=== PATIENT | male | born 1990 | race Caucasian/White ===

== ENCOUNTER 2017-07-29 20:16 | Emergency (ER) | payer OTHER ==
[~2017-07-29] VITALS: Ht 180.3 cm; Wt 79.1 kg
[2017-07-29 20:24] VITALS: BP 142/81; PULSE 91; RESP 18; TEMP 98.3; O2SAT 100
[2017-07-29] MEDS ORDERED: SULF500T3 PO (20:32)
[2017-07-29] MEDS ORDERED: FOLI800T PO (20:32)
[2017-07-29] MEDS ORDERED: TYLE325T PO (20:32)
[2017-07-29] MEDS ORDERED: ACETAMINOPHEN 325 MG TAB PO ONE (20:45)
[2017-07-29] MEDS ORDERED: SODIUM CHLORID 0.9% 500 ML INJ 500 ML IV ONE (20:45)
[2017-07-29] MEDS ORDERED: SODIUM CHLORIDE 0.9% FLUSH 10 ML FLUSH IV FLUSH PRN (20:45)
[2017-07-29] MEDS ORDERED: METOCLOPRAMIDE HCL 10 MG/2 ML VIAL IV PUSH ONE (20:45)
--- NOTE | 2017-07-29 20:45 | PD ---
HPI Chief Complaint: Headache Time Seen by Provider: 20:35 Travel History International Travel<30 days: No Contact w/Intl Traveler<30days: No Traveled to known affect area: No History of Present Illness HPI 26-year-old male here for evaluation of head pain and neck pain. 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 Patient also reports that he was having sinus pressure at that time which has since resolved , now he has pain in his posterior head. He rates the pain is 4 out of 10, pressure, constant, worse in the mornings and at night, nonradiating, improved with holding pressure against his posterior scalp. He saw a chiropractor who performed x-rays of his neck and referred him to a neurologist, however economically component with a neurologist until August 15. He has not had any fevers. No paresthesias or motor deficits. No visual changes. He has not taken anything for the pain up until today when he took Tylenol this morning with some relief of symptoms. [facility] Past Medical History Diminished Hearing: No Gastrointestinal Disorders: Yes (ULCERATIVE COLITIS) Headaches: Yes (X 3 WEEKS THIS VISIT.) Immunizations Current: Yes Tetanus Vaccination: > 5 Years Influenza Vaccination: No Past Surgical History Surgical History: No Previous Surgery Social History Alcohol Use: Yes (GLASS OF WINE DAILY) Tobacco Use: No Substance Use: No Allergies-Medications (Allergen,Severity, Reaction): Coded Allergies: cefaclor (Verified Allergy, Severe, Rash, 07/29/17) Reported Meds & Prescriptions Reported Meds & Active Scripts Active Reported Tylenol (Acetaminophen) 325 Mg Tab 650 Mg PO ONCE Folic Acid 0.8 Mg Tab 800 Mcg PO DAILY Sulfasalazine 500 Mg Tab 1,000 Mg PO Q8H Review of Systems Except as stated in HPI: all other systems reviewed are Neg Physical Exam Narrative GENERAL: Well-developed, well-nourished, comfortable, no apparent distress. SKIN: Focused skin assessment warm/dry. HEAD: Atraumatic. Normocephalic. Mild posterior scalp tenderness without masses , without skin color changes. EYES: Pupils equal, round, 3 mm, reactive to light. EOMI. No scleral icterus. No injection or drainage. ENT: No nasal bleeding or discharge. Mucous membranes pink and moist. NECK: Trachea midline. No JVD. No midline vertebral step-off or tenderness. No nuchal rigidity. CARDIOVASCULAR: Regular rate and rhythm. RESPIRATORY: No accessory muscle use. MUSCULOSKELETAL: No obvious deformities. No clubbing. No cyanosis. No edema. NEUROLOGICAL: Awake and alert. No obvious cranial nerve deficits. Motor grossly within normal limits. Normal speech. No focal deficits. PSYCHIATRIC: Appropriate mood and affect; insight and judgment normal. Data Data Last Documented VS Vital Signs Date Time Temp Pulse Resp B/P (MAP) Pulse Ox O2 Delivery O2 Flow Rate FiO2 07/29/17 20:55 90 18 137/68 (91) 99 Room Air 07/29/17 20:24 98.3 Orders Orders Basic Metabolic Panel (Bmp) (07/29/17 20:41) Complete Blood Count With Diff (07/29/17 20:41) Prothrombin Time / Inr (Pt) (07/29/17 20:41) Act Partial Throm Time (Ptt) (07/29/17 20:41) Iv Access Insert/Monitor (07/29/17 20:41) Ecg Monitoring (07/29/17 20:41) Oximetry (07/29/17 20:41) Sodium Chloride 0.9% Flush (Ns Flush) (07/29/17 20:45) Ct Brain W/O Iv Contrast(Rout) (07/29/17 ) Ct Cerv Spine W/O Contrast (07/29/17 ) Metoclopramide Inj (Reglan Inj) (07/29/17 20:45) Acetaminophen (Tylenol) (07/29/17 20:45) Sodium Chlorid 0.9% 500 Ml Inj (Ns 500 M (07/29/17 20:45) Labs Laboratory Tests Test 07/29/17 20:50 White Blood Count 7.5 TH/MM3 Red Blood Count 5.00 MIL/MM3 Hemoglobin 15.4 GM/DL Hematocrit 46.6 % Mean Corpuscular Volume 93.3 FL Mean Corpuscular Hemoglobin 30.8 PG Mean Corpuscular Hemoglobin Concent 33.0 % Red Cell Distribution Width 11.2 % Platelet Count 228 TH/MM3 Mean Platelet Volume 8.3 FL Neutrophils (%) (Auto) 57.0 % Lymphocytes (%) (Auto) 32.6 % Monocytes (%) (Auto) 8.1 % Eosinophils (%) (Auto) 1.8 % Basophils (%) (Auto) 0.5 % Neutrophils # (Auto) 4.4 TH/MM3 Lymphocytes # (Auto) 2.4 TH/MM3 Monocytes # (Auto) 0.6 TH/MM3 Eosinophils # (Auto) 0.1 TH/MM3 Basophils # (Auto) 0.0 TH/MM3 CBC Comment DIFF FINAL Differential Comment Prothrombin Time 10.9 SEC Prothromb Time International Ratio 1.1 RATIO Activated Partial Thromboplast Time 28.3 SEC Blood Urea Nitrogen 15 MG/DL Creatinine 1.10 MG/DL Random Glucose 137 MG/DL Calcium Level 8.8 MG/DL Sodium Level 138 MEQ/L Potassium Level 3.4 MEQ/L Chloride Level 101 MEQ/L Carbon Dioxide Level 31.7 MEQ/L Anion Gap 5 MEQ/L Estimat Glomerular Filtration Rate 82 ML/MIN [facility] Medical Decision Making Medical Screen Exam Complete: Yes Emergency Medical Condition: Yes Differential Diagnosis Musculoskeletal pain, musculoskeletal strain, tension headache, cluster headache , migraine headache, SAH/meningitis/encephalitis unlikely Narrative Course Vital signs are within normal limits. CBC and BMP are essentially unremarkable. CT head shows no acute intracranial abnormality. CT cervical spine shows no acute abnormality, negative trauma CT. The patient was given a half a liter of normal saline IV, IV Reglan, and oral Tylenol, and on reassessment he states his headache has resolved. He was made aware of all findings and provided a copy of his CT head and neck reports. At this point he stable for discharge home with further workup as an outpatient with a primary care physician this week. He was advised on when to return to the emergency department. He verbalizes understanding and agreement with plan. Diagnosis Primary Impression: Cephalgia Qualified Codes: R51 - Headache Referrals: Primary Care Physician 3 days Additional Instructions: Follow-up with a primary care physician or neurologist this week. Take Tylenol/ibuprofen for pain. Return to the emergency department for worsening symptoms or any other concerns. Disposition: 01 DISCHARGE HOME Condition: Stable Andrei Johnson MD Jul 29, 2017 20:45
[2017-07-29 20:55] VITALS: BP 137/68; PULSE 90; RESP 18; O2SAT 99
[2017-07-29 21:12] LABS: AUTOMATED NEUTROPHIL # 4.4 TH/MM3 (1.8-7.7); BASOPHIL % 0.5 % (0.0-2.0); EOSINOPHIL # 0.1 TH/MM3 (0-0.4); EOSINOPHIL % 1.8 % (0.0-4.0); HEMATOCRIT 46.6 % (39.0-51.0); HEMOGLOBIN 15.4 GM/DL (13.0-17.0); LYMPH % 32.6 % (9.0-44.0); LYMPHOCYTE # 2.4 TH/MM3 (1.0-4.8); MEAN CELL VOLUME 93.3 FL (80.0-100.0); MEAN CORPUSCULAR HEMOGLOBIN 30.8 PG (27.0-34.0); MEAN PLATELET VOLUME 8.3 FL (7.0-11.0); MONO % 8.1 % (0.0-8.0); MONOCYTE # 0.6 TH/MM3 (0-0.9); PLATELET COUNT 228 TH/MM3 (150-450); RED CELL DISTRIBUTION WIDTH 11.2 % (11.6-17.2); WHITE BLOOD COUNT 7.5 TH/MM3 (4.0-11.0)
[2017-07-29 21:23] LABS: CALCIUM 8.8 MG/DL (8.5-10.1)
[2017-07-29 21:24] LABS: BICARBONATE 31.7 MEQ/L (21.0-32.0)
[2017-07-29 21:26] LABS: INTERNATIONAL NORMALIZED RATIO 1.1 RATIO; PROTHROMBIN TIME - PATIENT 10.9 SEC (9.8-11.6)
[2017-07-29 21:27] LABS: CREATININE 1.1 MG/DL (0.60-1.30)
--- NOTE | 2017-07-29 21:32 | RADRPT ---
EXAM DATE/TIME: 07/29/2017 21:18 [facility] COMPARISON: No previous studies available for comparison. INDICATIONS : Headache for 3 weeks RADIATION DOSE: 67.80 CTDIvol (mGy) MEDICAL HISTORY : Ulcerative colitis. SURGICAL HISTORY : None. ENCOUNTER: Initial ACUITY: 3 weeks PAIN SCALE: 4/10 LOCATION: Left occipital TECHNIQUE: Multiple contiguous axial images were obtained of the head. Using automated exposure control and adj ustment of the mA and/or kV according to patient size, radiation dose was kept as low as reasonably a chievable to obtain optimal diagnostic quality images. DICOM format image data is available electro nically for review and comparison. FINDINGS: CEREBRUM: The ventricles are normal for age. No evidence of midline shift, mass lesion, hemorrhage or acute in farction. No extra-axial fluid collections are seen. POSTERIOR FOSSA: The cerebellum and brainstem are intact. The 4th ventricle is midline. The cerebellopontine angle i s unremarkable. EXTRACRANIAL: The visualized portion of the orbits is intact. SKULL: The calvaria is intact. No evidence of skull fracture. CONCLUSION: Negative noncontrast CT Kip Gallo MD on July 29, 2017 at 21:29 Board Certified Radiologist. This report was verified electronically.
--- NOTE | 2017-07-29 21:40 | RADRPT ---
EXAM DATE/TIME: 07/29/2017 21:18 [facility] COMPARISON: No previous studies available for comparison. INDICATIONS : Neck pain. Headache for 3 weeks RADIATION DOSE: 26.64 CTDIvol (mGy) MEDICAL HISTORY : Ulcerative colitis. SURGICAL HISTORY : None. ENCOUNTER: Initial ACUITY: 3 weeks PAIN SCALE: 4/10 LOCATION: neck TECHNIQUE: Volumetric scanning of the cervical spine was performed. Multiplanar reconstructions in the sagittal, coronal and oblique axial planes were performed. Using automated exposure control and adjustment o f the mA and/or kV according to patient size, radiation dose was kept as low as reasonably achievable to obtain optimal diagnostic quality images. DICOM format image data is available electronically f or review and comparison. FINDINGS: The sagittal reconstructions demonstrate normal alignment and normal prevertebral soft tissues. The d ens is intact and there is a normal atlantoaxial relationship. The axial images demonstrate that the vertebral bodies and posterior elements are intact. The soft ti ssues are within normal limits. There is no evidence of acute fracture or malalignment. CONCLUSION: Negative trauma CT. Kip Gallo MD on July 29, 2017 at 21:37 Board Certified Radiologist. This report was verified electronically.
[2017-07-29 22:17] VITALS: BP 118/66
== END 2017-07-29 22:25 | disposition home or self-care (01) ==
LOC: PHED 20:16
DX: R51 Headache (principal)
CPT/HCPCS: 70450; 72125; 80048; 85025; 85610; 85730; 96374; 99285; J2765; J7040